=== PATIENT | male | born 1960 | race Caucasian/White ===

== ENCOUNTER → 2017-01-26 | Outpatient (CLI) | payer BC ==
[~2017-01-26] MED LIST: AMLO-114 PO; ASPI81TA28 PO; ATOR10TA88 PO; CLB200 PO; LABE1TAB28 PO; LOSA50TA6 PO; OXYC1TAB3 PO; TRIA37.5 PO
== END | disposition home or self-care (01) ==
LOC: C.LAB 12:21
PROVIDERS: ATTEND Internal Medicine
DX: R97.20 Elevated prostate specific antigen [PSA] (principal)

== ENCOUNTER → 2017-02-02 | Outpatient (CLI) | payer BC | END | disposition home or self-care (01) | LOC: C.PATHSPEC 17:31 | PROVIDERS: ATTEND Urology | DX: C61 Malignant neoplasm of prostate (principal) ==

== ENCOUNTER → 2017-02-08 | Outpatient (CLI) | payer BC ==
[~2017-02-08] MED LIST changes: +ATOR10TA82 PO; -ATOR10TA88 PO
--- NOTE | 2017-02-08 12:17 | DIAGNOSTIC IMAGING REPORT ---
BONE SCAN WHOLE BODY HISTORY: 56 years-old Male C61 Prostate [id number] prostate cancer. Metastatic survey. History of left total knee arthroplasty COMPARISON: CT chest 11/21/2009 TECHNIQUE: Anterior and posterior whole-body planar bone scan scintigraphic images were obtained utilizing 26.1 mCi of technetium 99 MDP FINDINGS: Focus of radiotracer cannulation within the region of the left antecubital fossa suggests injection site. There is physiologic distribution of radiotracer activity about the kidneys and urinary bladder as well as within the soft tissues. Photopenic defect about the left knee is compatible with arthroplasty. Moderate tracer uptake is noted about the left knee, shoulders, wrists and scattered throughout the thoracic spine suggesting degenerative changes. Focal area of intense radiotracer uptake about the lateral aspect of the right foot is noted. Moderate area of radiotracer uptake about the posterior left mid neck and also within the region of the facet joints bilaterally at L4 and on the left at L5, also favor degenerative changes. Focal area of moderate radiotracer uptake is noted about the anterior aspect of the lateral left eighth rib region. Degenerative changes of the sternoclavicular joints. IMPRESSION: 1. No definite areas of increased radiotracer uptake are seen to suggest metastasis. 2. Moderate areas of radiotracer uptake within the mid cervical spine, lower lumbar spine and throughout the thoracic spine as above favor degenerative changes. Correlate with radiographs. 3. Intense radiotracer uptake about the lateral aspect of the right foot is suspicious for possible fracture or degenerative changes. 4. Moderate radiotracer uptake adjacent to the anterior left eighth rib is indeterminate and could also be correlated with radiographs. The above report was generated using voice recognition software. It may contain grammatical, syntax or spelling errors. Electronically signed by: Kayden Franco M.D. 02/08/2017 12:16 PM Dictated Date/Time: 02/08/2017 12:09 PM
== END | disposition home or self-care (01) ==
LOC: C.NUCL 07:47
PROVIDERS: ATTEND Urology
DX: C61 Malignant neoplasm of prostate (principal)

== ENCOUNTER 2017-03-09 05:36 | Inpatient (IN) | payer BC ==
[2017-02-23 14:48] VITALS: BMI 34.0
--- NOTE | 2017-02-23 15:11 | PAT Medication Instructions ---
Service Date Feb 23, 2017. Current Home Medication List Aspirin (Aspirin Ec), 81 MG PO QAM Atorvastatin (Lipitor), 10 MG PO QAM Ibuprofen (Advil), 800 MG PO PRN Labetalol (Normodyne), 400 MG PO BID Losartan Potassium (Cozaar), 100 MG PO QAM Tadalafil (Cialis), 10 MG PO QAM Triamterene/Hctz (Dyazide 37.5MG/25MG), 1 TAB PO QAM Medication Instructions For Your Scheduled Surgery - Check with surgeon for instructions: Ibuprofen (Advil), 800 MG PO PRN Aspirin (Aspirin Ec), 81 MG PO QAM - Hold the following medications the morning of surgery: Losartan Potassium (Cozaar), 100 MG PO QAM Triamterene/Hctz (Dyazide 37.5MG/25MG), 1 TAB PO QAM - Take the following medications the morning of surgery with a sip of water: Labetalol (Normodyne), 400 MG PO BID Atorvastatin (Lipitor), 10 MG PO QAM Tadalafil (Cialis), 10 MG PO QAM - Take the following medications as scheduled the night before surgery: Labetalol (Normodyne), 400 MG PO BID If you have any questions please call us at [phone] or [phone] or [phone]
[2017-02-23 15:31] LABS: BASO % 0.9 %; BASO ABS # 0.07 K/uL (0-0.2); COMPLETE YES; EOS % 3.3 %; HEMATOCRIT 38.7 % (42-52); IG% 0.4 %; LYMPH % 20.7 %; LYMPH ABS # 1.59 K/uL (1.2-3.4); MEAN CELL VOLUME 97.7 fL (80-100); MEAN CORPUSCULAR HEMOGLOBIN 32.8 pg (25-34); MEAN CORPUSCULAR HGB CONC 33.6 g/dl (32-36); MEAN PLATELET VOLUME 9.5 fL (7.4-10.4); MONO % 11.3 %; NEUT % 63.4 %; PLATELET COUNT 176 K/uL (130-400); RED BLOOD COUNT 3.96 M/uL (4.7-6.1); WHITE BLOOD COUNT 7.69 K/uL (4.8-10.8)
[2017-02-23 15:41] LABS: URINE APPEARANCE CLEAR (CLEAR); URINE BILIRUBIN NEG (NEG); URINE COLOR YELLOW; URINE NITRITE NEG (NEG); UROBILINOGEN NEG (NEG)
[2017-02-23 15:43] LABS: MANUAL MICROSCOPIC REQUIRED? NO; REVIEW REQ? NO
[2017-02-23 16:13] LABS: BUN/CREATININE RATIO 23.7 (10-20); CALCIUM 9.6 mg/dl (8.5-10.1); CREATININE 0.96 mg/dl (0.60-1.40); POTASSIUM 4.1 mmol/L (3.5-5.1)
--- NOTE | 2017-02-23 16:18 | DIAGNOSTIC IMAGING REPORT ---
CHEST 2 VIEWS ROUTINE CLINICAL HISTORY: Preoperative evaluation. COMPARISON STUDY: Chest radiograph November 26, 2015. FINDINGS: Lung volumes are normal. No pneumothorax or pleural effusion is present. There is no consolidation to suggest pneumonia. Numerous old healed left-sided rib fractures are noted as well as posttraumatic and degenerative changes of the left shoulder. Cardiomediastinal silhouette is stable. IMPRESSION: No acute cardiopulmonary findings. No change in appearance of the chest with extensive old posttraumatic findings within the left hemithorax. Electronically signed by: Phong Zamora M.D. 02/23/2017 4:17 PM Dictated Date/Time: 02/23/2017 4:15 PM
[2017-03-09] VITALS (8 sets, daily range): BP systolic 106–152; BP diastolic 67–86; PULSE 73–93; TEMP 36.5–36.8; O2SAT 92–96; Ht 188 cm; Wt 120.9 kg
[~2017-03-09] VITALS: Ht 188 cm; Wt 120.9 kg
[~2017-03-09 05:36] MED LIST changes: -AMLO-114 PO; -CLB200 PO; +IBUP-1050 PO; -OXYC1TAB3 PO; +TADA10TA PO
[2017-03-09] MEDS ORDERED: LACTATED RINGER'S 1000ML 1,000 ML IV SCH (06:00)
[2017-03-09] MEDS ORDERED: HEPARIN SOD 5000 UNIT/0.5 ML CARP SQ SCH (06:00)
[2017-03-09] MEDS ORDERED: CEFAZOLIN 2000MG IV PUSH 10 ML IV SCH (06:00)
[2017-03-09] MEDS ORDERED: BUPIVACAINE 0.5 % 5 MG/1 ML MPF 30ML VIAL ONE (06:54)
[2017-03-09] MEDS ORDERED: FENTANYL CITRATE INJ 50 MCG/1 ML 2 ML VIAL ONE (07:08)
[2017-03-09] MEDS ORDERED: BELLADONNA/OPIUM SUPP 60 MG SUPP PR ONE (07:08)
[2017-03-09] MEDS ORDERED: MIDAZOLAM HCL 1 MG/ML 2ML VIAL ONE (07:08)
--- NOTE | 2017-03-09 07:22 | History & Physical Bridge Note ---
H&P Re-Evaluation Bridge Note: I have examined the patient, reviewed the History & Physical and in the interval since the performance of the History & Physical I have noted the following changes of clinical significance: No changes noted
[2017-03-09] MEDS ORDERED: ATROPINE SULFATE 0.1 MG/ML 5ML SYR IV PRN (08:15)
[2017-03-09] MEDS ORDERED: HYDROmorphone INJ 2 MG/ML SYR/VIAL IV PRN (08:15)
[2017-03-09] MEDS ORDERED: ONDANSETRON INJ 2 MG/ML 2 ML VIAL IV PRN ×2 (08:15→11:15)
[2017-03-09] MEDS ORDERED: KETOROLAC TROMETHAMINE 30 MG/ML VIAL IV. PRN (08:15)
[2017-03-09] MEDS ORDERED: LIDOCAINE HCL 2% 2 ML VIAL (20MG/ML) ONE (08:18)
[2017-03-09] MEDS ORDERED: LARYING-O-JET KIT (LTA) ONE ×2 (08:18)
[2017-03-09] MEDS ORDERED: ROCURONIUM BROMIDE 10 MG/ML 5 ML VIAL IV ONE ×2 (08:18)
[2017-03-09] MEDS ORDERED: PROPOFOL IV EMULSION 10 MG/ML 20 ML VIAL IV ONE (08:18)
[2017-03-09] MEDS ORDERED: PHENYLEPHRINE 100MCG/ML 5ML SYR ONE (08:23)
[2017-03-09] MEDS ORDERED: NEOSTIGMINE METHYLSULFATE 5 MG/5 ML SYR ONE (08:23)
[2017-03-09] MEDS ORDERED: EpHEDrine SULFATE 50MG/5ML SYR ONE (08:23)
[2017-03-09] MEDS ORDERED: GLYCOPYRROLATE INJ 0.2 MG/ML VIAL ONE (08:23)
[2017-03-09] MEDS ORDERED: ONDANSETRON INJ 2 MG/ML 2 ML VIAL ONE (08:23)
[2017-03-09] MEDS ORDERED: HYDROmorphone INJ 2 MG/ML SYR/VIAL ONE (08:24)
[2017-03-09] MEDS ORDERED: METHYLENE BLUE 0.5% 10 ML VIAL ONE (09:43)
[2017-03-09] MEDS ORDERED: SURGICEL ABSORB HEMOSTAT 2IN X 14IN TOP ONE (10:22)
[2017-03-09] MEDS ORDERED: FLOSEAL HEMOSTATIC MATRIX 10ML TOP ONE (10:24)
[2017-03-09] MEDS: LACTATED RINGER'S 1000ML 1,000 ML IV SCH ×2 (11:09→19:26)
[2017-03-09] MEDS ORDERED: OXYC7.5T62 PO ×2 (11:18→11:27)
[2017-03-09] MEDS ORDERED: CLC100 PO (11:18)
[2017-03-09] MEDS ORDERED: CIPR1TAB10 PO (11:18)
--- NOTE | 2017-03-09 11:40 | [facility] Operative Report ---
Operative Report Operative Date Mar 09, 2017. Pre-Operative Diagnosis Prostate cancer Post-Operative Diagnosis Same Procedure(s) Performed Robot Assisted Laparoscopic Prostatectomy with pelvic lymph node dissection Surgeon Dr Pimentel Shorts Sifter Surgeon(s) Constance AGUIRRE Estimated Blood Loss 100ML Findings As per dictation. Specimens A. Periprostatic fat B. Right pelvic lymph node (clip) C. Left pelvic lymph node D. Prostate and seminal vesicles Drains EVA; Irving Anesthesia Gen Complication(s) None Disposition Recovery Room / PACU (stable) Indications Prostate Cancer Description of Procedure The patient was identified in the preoperative holding area, appropriate informed consents were reviewed and completed, and he was transported to the operating suite. Subcutaneous heparin was administered in the pre-operative holding area. Upon arrival in the operating suite, he received appropriate antibiotics and general anesthesia. He was positioned in dorsal lithotomy, a B& O suppository was inserted after digital rectal exam, and he was prepped and draped in standard fashion. A Irving catheter was inserted in the sterile field. A Veress needle was passed per umbilicus with uniform insuflation of the abdomen to 15mmHg. He was placed in steep Trendelenburg position. A periumbilical incision was then made to accommodate a 12mm Visiport with 10mm 0degree laparoscope. Inspection of the abdomen was carried out, and there was no evidence of traumatic entry or injury secondary to the Veress needle. After confirming a clear anterior abdominal wall, ports were subsequently placed in standard robotic prostatectomy fashion without incident. To begin the robotic portion of the case, the left lateral aspect of the sigmoid was mobilized off of the left pelvic side wall to allow the pouch of Chidi to be appropriately visualized. Additional lysis of adhesions was required secondary to a prior open appendectomy. The medial umbilical ligaments were then controlled with bipolar electrocautery just inferior to the umbilicus. Following cauterization, they were divided utilizing monopolar cautery. A peritoneal incision was carried from this location to the medial aspect of the internal inguinal rings bilaterally with care to avoid opening through the ring. This incision was concluded when the vas deferens was reached. Dissection of the bladder and prostate off of the posterior aspect of the pubic arch was completed allowing full visualization of the prostate. The fat overlying the prostate was removed en bloc and passed off the table as a specimen labeled "periprostatic fat". The endopelvic fascia was cleared during this portion of the procedure, and subsequently opened - first on the right and then the left. The incision through the endopelvic fascia began near the prostate-bladder junction and was carried to the apex with extreme care to preserve all lateral levator musculature as well as the periurethral musculature and sphincter complex. The puboprostatic ligaments were thinned slightly bilaterally before placing a 0-Vicryl figure of 8 stitch around the DVC. The lymph node dissection was then conducted. External iliac vessles were identified on the pelvic side wall. The packet of fat and lymphatic tissue that resides just under the iliac vein was elevated and off of the vein with a split and roll technique. The packet was dissected laterally to the circumflex vein and distally to the obturator nerve which was preserved. The proximal aspect of the packet was carried towards the bifurcation of the iliac vessels. A combination of monopolar and bipolar cautery were used to assist with control. Clips were placed at the proximal and distal aspects of the packet prior to transection. After completing the dissection on both sides, the packets were collected and passed off of the table as specimens labeled "pelvic lymph nodes". My attention then returned to the prostate, with identification of the bladder neck aided by gentle traction on the Irving catheter and lateral to medial pressure at the presumed level of the bladder neck with the robotic instruments. An anterior cystotomy was made, the Irving balloon deflated and the catheter guided through the incision to allow anterior retraction. I attempted to preserve maximal bladder neck musculature as I circumferentially dissected around the bladder neck. After incision through the posterior aspect of the mucosa, the dissection was carried through detrusor muscle until the bilateral ampullae of the vasa were identified. In the midst of this dissection , I noted a small posterior tear of the bladder neck (2mm). After careful inspection inside and outside of the bladder, I repaired the tear primarily using 3-0 vicryl. The UO's were visualized and not incorporated into the closure. After identifying the vasa, I developed a pedicle packet on each side to help flatten the dissection and placed Weck clips across the most proximal and superficial aspects of these packets adjacent to the bladder. The packets were then divided allowing easier visualization of the vasa and posterior aspect of the prostate. Vasa were each dissected before being transected. These were used to further aide in anterior retraction as the bilateral seminal vesicals were dissected with very judicious use of bipolar electrocautery. Following SV dissection, a posterior plane behind the prostate was developed - splitting Denonvilliers's fascia. This dissection was carried as far as possible towards the apex as well as far as possible laterally. An incision in the lateral prostatic fascia was then made bilaterally to facilitate control of the vascular pedicles. The pedicles were each controlled with a series of Weck clips. The neurovascular bundles were identified bilaterally. Of note, he has bilateral cancer, with slightly more aggressive disease on the left and MRI suggestion of micro-extraprostatic extension. Subsequently, I performed a cautious nerve sparing bilaterally (with particular caution on the left). The apical attachments of the prostate were remaining at that stage. The DVC was divided with bipolar electrocautery. Nena-prostatic tissue incised with sharp dissection and monopolar cautery. Maximal urethral length was preserved before dividing the urethra sharply. The prostate was entirely freed at that point, and collected in an EndoCatch bag before being moved out of the field of vision. Hemostasis was confirmed and anastomosis of the bladder and urethra was completed utilizing a double armed V- Lock stitch. A new Irving catheter was inserted and the anastomosis tested with irrigation. There was no evidence of leak. FloSeal coagulant was placed around the anastomosis. The robot was undocked, the specimen extracted through expansion of the nena- umbilical camera port. The fascia was closed with a series of 0-PDS figure of 8 stitches. The right oral surgery assistant port was closed in two layers - with a figure of 8 0-Vicryl to reapproximate the fascia followed by 4-0 Monocryl to close the skin. Monocryl was used to close all other skin incisions. All wounds were dressed with Dermabond. The case was concluded and the patient taken to the PACU in stable condition. I attest to the content of the Intraoperative Record and any orders documented therein. Any exceptions are noted below.
[2017-03-09] MEDS ORDERED: FUROSEMIDE 10 MG/ML 10 ML VIAL ONE (11:52)
[2017-03-09 12:05] LABS: HEMATOCRIT 36.3 % (42-52); MEAN CELL VOLUME 100.6 fL (80-100); MEAN CORPUSCULAR HEMOGLOBIN 32.4 pg (25-34); MEAN PLATELET VOLUME 9.2 fL (7.4-10.4); PLATELET COUNT 153 K/uL (130-400); RED BLOOD COUNT 3.61 M/uL (4.7-6.1); WHITE BLOOD COUNT 7.65 K/uL (4.8-10.8)
--- NOTE | 2017-03-09 12:06 | Anesthesiology Progress Note ---
Anesthesia Post Op Note Date & Time Mar 09, 2017 at 12:06 Vital Signs Pain Intensity: 0 Vital Signs Past 12 Hours Date Time Temp Pulse Resp B/P (MAP) Pulse Ox O2 Delivery O2 Flow Rate FiO2 03/09/17 12:00 85 13 122/62 93 Oxymask 4 03/09/17 11:50 90 14 102/65 96 Oxymask 10 03/09/17 11:40 86 14 104/58 94 Oxymask 10 03/09/17 11:32 36.0 93 19 109/60 94 Oxymask 10 03/09/17 05:52 36.5 73 20 114/76 (89) 96 Room Air Notes Mental Status: alert / awake / arousable, participated in evaluation Pt Amnestic to Procedure: Yes Nausea / Vomiting: adequately controlled Pain: adequately controlled Airway Patency, RR, SpO2: stable & adequate BP & HR: stable & adequate Hydration State: stable & adequate Anesthetic Complications: no major complications apparent
[2017-03-09 12:09] LABS: MEAN CORPUSCULAR HGB CONC 32.2 g/dl (32-36)
[2017-03-09 12:25] LABS: BUN/CREATININE RATIO 12.7 (10-20); CALCIUM 8.4 mg/dl (8.5-10.1); CREATININE 1.51 mg/dl (0.60-1.40); POTASSIUM 4.5 mmol/L (3.5-5.1)
[2017-03-09] MEDS ORDERED: NURSING VERBAL MED ORDER ONE ×2 (12:30→18:15)
[2017-03-09] MEDS ORDERED: LIDOCAINE HCL 2% JELLY 30 ML TUBE EXT PRN (13:15)
[2017-03-09] MEDS ORDERED: PHENAZOPYRIDINE HCL 200 MG TAB PO PRN (13:15)
[2017-03-09] MEDS: ACETAMINOPHEN 500 MG TAB PO SCH ×2 (13:20→19:23)
[2017-03-09 13:45] LABS: INR 1.1 (0.9-1.1); PROTHROMBIN TIME (PATIENT) 11.6 SECONDS (9.0-12.0)
[2017-03-09] MEDS: HYDROmorphone INJ 1 MG/ML SYR IV PRN ×3 (15:51→23:39)
[2017-03-09] MEDS: CEFAZOLIN IV 3,000 MG in SYRINGE 0 ML IV SCH ×2 (16:46→23:29)
[2017-03-09] MEDS: KETOROLAC TROMETHAMINE 15 MG/ML VIAL IV PRN ×2 (17:00→23:26)
[2017-03-09] MEDS ORDERED: LORAZEPAM 1 MG TAB PO PRN (18:15)
[2017-03-09] MEDS ORDERED: DiphenhydrAMINE HCL 50 MG/ML VIAL IV PRN (19:45)
[2017-03-09] MEDS: LABETALOL HCL 200 MG TAB PO SCH (20:53)
[2017-03-09] MEDS: DOCUSATE SODIUM 100 MG CAP PO SCH (20:53)
[2017-03-09] MEDS: OXYBUTYNIN CHLORIDE 5 MG TAB PO PRN (20:53)
[2017-03-09] MEDS: HEPARIN SOD 5000 UNIT/0.5 ML CARP SQ SCH (20:54)
[2017-03-09] MEDS: OXYCODONE/ACETAMINOPHEN 7.5-325 TAB PO PRN (21:28)
[2017-03-10] MEDS: ACETAMINOPHEN 500 MG TAB PO SCH ×2 (02:00→08:00)
[2017-03-10 03:24] VITALS: BP 130/77; PULSE 87; TEMP 37; O2SAT 97
[2017-03-10] MEDS: OXYCODONE/ACETAMINOPHEN 7.5-325 TAB PO PRN ×2 (03:28→11:12)
[2017-03-10] MEDS: HYDROmorphone INJ 1 MG/ML SYR IV PRN (04:41)
[2017-03-10] MEDS: OXYBUTYNIN CHLORIDE 5 MG TAB PO PRN (05:00)
[2017-03-10 06:40] LABS: BASO % 0.6 %; BASO ABS # 0.05 K/uL (0-0.2); COMPLETE YES; EOS % 2.6 %; HEMATOCRIT 35.2 % (42-52); IG% 0.4 %; LYMPH % 11.1 %; LYMPH ABS # 0.91 K/uL (1.2-3.4); MEAN CELL VOLUME 101.1 fL (80-100); MEAN CORPUSCULAR HEMOGLOBIN 32.2 pg (25-34); MEAN CORPUSCULAR HGB CONC 31.8 g/dl (32-36); MEAN PLATELET VOLUME 9.6 fL (7.4-10.4); MONO % 11.1 %; NEUT % 74.2 %; PLATELET COUNT 157 K/uL (130-400); RED BLOOD COUNT 3.48 M/uL (4.7-6.1); WHITE BLOOD COUNT 8.19 K/uL (4.8-10.8)
[2017-03-10 07:10] LABS: CALCIUM 7.8 mg/dl (8.5-10.1); CREATININE 1.16 mg/dl (0.60-1.40)
[2017-03-10 07:13] VITALS: BP 121/73; PULSE 107; TEMP 37.2; O2SAT 93
[2017-03-10] MEDS: LABETALOL HCL 200 MG TAB PO SCH (07:41)
[2017-03-10] MEDS: KETOROLAC TROMETHAMINE 15 MG/ML VIAL IV PRN (08:12)
--- NOTE | 2017-03-10 08:13 | Clinical Documentation Query ---
PLEASE SEND TO DR. MERCADO FOR REVIEW. CLINICAL DOCUMENTATION QUERY A 56 yo male admitted for robot assisted lap prostatectomy. In your clinical opinion is this patient being managed for: ( ) Acute kidney failure, resolving ( ) Not Agree (x ) Other explanation of clinical findings (Please Explain) ( ) Unable to determine (Please Define) ( ) Need to Discuss The medical record reflects the following clinical findings, treatment, and risk factors. Clinical Indicators: Creatinine 0.96 trending up to 1.51, GFR 86.8 trending down to 50.2 Treatment: IV hydration, I&O, serial PRPs Risk Factors: S/P surgical intervention Please clarify and document your clinical opinion in the progress notes and discharge summary. Terms such as "probable", "suspected", "likely", "questionable", "possible", or "still to be ruled out" are acceptable. IF IN AGREEMENT, YOU MUST DOCUMENT ABOVE DIAGNOSTIC STATEMENT IN DAILY PROGRESS NOTES AND DISCHARGE SUMMARY. This document is not part of the patient's record. Thank You, Evy Bailey RN [phone]
--- NOTE | 2017-03-10 08:29 | Progress Note ---
Subjective Date of Service: Mar 10, 2017. Subjective Pt evaluation today including: conversation w/ patient, physical exam, lab review Voiding: brandon catheter in place Did well overnight - pain controlled - still awaiting bowel function - urine clearing appropriately - tolerating a diet Review of Systems Constitutional: No see HPI, No fever, No chills, No sweats, No weight loss, No weakness, No fatigue, No problem reported Objective Vital Signs Date Time Temp Pulse Resp B/P (MAP) Pulse Ox O2 Delivery O2 Flow Rate FiO2 03/10/17 07:13 37.2 107 20 121/73 (89) 93 Room Air 03/10/17 03:24 37.0 87 18 130/77 (94) 97 Room Air 03/09/17 23:40 Room Air 03/09/17 23:25 36.8 90 18 152/85 (107) 96 Room Air 03/09/17 20:42 36.6 93 16 138/86 (103) 95 Room Air 03/09/17 15:33 36.8 77 17 135/78 (97) 93 Room Air 03/09/17 14:31 86 16 115/74 (88) 93 03/09/17 13:30 36.5 93 16 106/67 (80) 92 Nasal Cannula 3.0 03/09/17 13:11 92 18 110/71 (84) 95 Nasal Cannula 2.0 03/09/17 12:30 95 Nasal Cannula 2.0 03/09/17 12:30 95 Nasal Cannula 2.0 03/09/17 12:30 36.8 89 16 117/75 (89) 95 Nasal Cannula 2.0 03/09/17 12:10 36.1 95 12 137/71 95 Nasal Cannula 3 03/09/17 12:00 85 13 122/62 93 Oxymask 4 03/09/17 11:50 90 14 102/65 96 Oxymask 10 03/09/17 11:40 86 14 104/58 94 Oxymask 10 03/09/17 11:32 36.0 93 19 109/60 94 Oxymask 10 Physical Exam General Appearance: no apparent distress Cardiovascular: no edema Abdomen: soft (mildly distended - incisions appropriate. EVA serosang - brandon clearing) Skin: warm/dry Laboratory Results Last 24 Hours Test 03/09/17 11:49 03/09/17 13:26 03/10/17 06:00 White Blood Count 7.65 K/uL 8.19 K/uL Red Blood Count 3.61 M/uL 3.48 M/uL Hemoglobin 11.7 g/dL 11.2 g/dL Hematocrit 36.3 % 35.2 % Mean Corpuscular Volume 100.6 fL 101.1 fL Mean Corpuscular Hemoglobin 32.4 pg 32.2 pg Mean Corpuscular Hemoglobin Concent 32.2 g/dl 31.8 g/dl RDW Standard Deviation 48.4 fL 49.0 fL RDW Coefficient of Variation 13.2 % 13.4 % Platelet Count 153 K/uL 157 K/uL Mean Platelet Volume 9.2 fL 9.6 fL Sodium Level 140 mmol/L 135 mmol/L Potassium Level 4.5 mmol/L 4.0 mmol/L Chloride Level 106 mmol/L 101 mmol/L Carbon Dioxide Level 24 mmol/L 27 mmol/L Anion Gap 10.0 mmol/L 7.0 mmol/L Blood Urea Nitrogen 19 mg/dl 22 mg/dl Creatinine 1.51 mg/dl 1.16 mg/dl Est Creatinine Clear Calc Drug Dose 73.7 ml/min 95.9 ml/min Estimated GFR () 58.2 80.0 Estimated GFR (Non- 50.2 69.0 BUN/Creatinine Ratio 12.7 19.0 Random Glucose 110 mg/dl 116 mg/dl Calcium Level 8.4 mg/dl 7.8 mg/dl Prothrombin Time 11.6 SECONDS Prothromb Time International Ratio 1.1 Neutrophils (%) (Auto) 74.2 % Lymphocytes (%) (Auto) 11.1 % Monocytes (%) (Auto) 11.1 % Eosinophils (%) (Auto) 2.6 % Basophils (%) (Auto) 0.6 % Neutrophils # (Auto) 6.08 K/uL Lymphocytes # (Auto) 0.91 K/uL Monocytes # (Auto) 0.91 K/uL Eosinophils # (Auto) 0.21 K/uL Basophils # (Auto) 0.05 K/uL Immature Granulocyte % (Auto) 0.4 % Immature Granulocyte # (Auto) 0.03 K/uL Assessment and Plan POD#1 s/p RALP with LND - urine clearing - labs appropriate - tolerating a diet - EVA out this AM - tentative plan for d/c home after lunch
[2017-03-10] MEDS: CEFAZOLIN IV 3,000 MG in SYRINGE 0 ML IV SCH (08:41)
[2017-03-10] MEDS: DOCUSATE SODIUM 100 MG CAP PO SCH (08:42)
[2017-03-10] MEDS ORDERED: TRIAMTERENE/HCTZ 37.5/25MG CAP PO SCH (09:00)
[2017-03-10] MEDS ORDERED: ATORVASTATIN 10 MG TAB PO SCH (09:00)
[2017-03-10] MEDS ORDERED: LOSARTAN POTASSIUM 50 MG TAB PO SCH (09:00)
[2017-03-10] MEDS ORDERED: ASPIRIN 81 MG ECTAB PO SCH (09:00)
[2017-03-10] MEDS: HEPARIN SOD 5000 UNIT/0.5 ML CARP SQ SCH (09:35)
--- NOTE | 2017-03-10 10:39 | Discharge Instructions ---
Discharge Instructions Date of Service Mar 09, 2017. Admission Reason for Admission: Prostate Cancer Discharge Discharge Diagnosis / Problem: Prostate Cancer Discharge Goals Goal(s): Decrease discomfort, Increase independence, Improve disease control, Therapeutic intervention Activity Recommendations Activity Limitations: per Instructions/Follow-up section Shower/Bathe: tomorrow . Instructions / Follow-Up Instructions / Follow-Up 1. Do not lift >15lbs x 6 weeks. 2. No heavy exercise x 6 weeks. You may engage in light activity such as walking and stairs as tolerated. 3. No sexual intercourse until cleared by Dr. Pimentel. You may resume taking your Cialis after your post-op appointment and clearance by Dr. Pimentel. 4. [address] drive x [address] while taking narcotics. 5. You have been prescribed the antibiotic Ciprofloxacin. Please start this medication 1 day prior to brandon catheter removal. Finish all of the antibiotic you have been prescribed. 6. Immediately call our office at [phone] if your catheter is removed for any reason. 7. Follow-up as scheduled. Please call our office at [phone] if you need to reschedule for any reason. . Current Hospital Diet Patient's current hospital diet: Clear Liquid Diet Discharge Diet Recommended Diet: Regular Diet Procedures Procedures Performed: Robot Assisted Laparoscopic Prostatectomy with pelvic lymph node dissection Pending Studies Studies pending at discharge: yes (prostate pathology and lymph node pathology) List of pending studies: prostate and lymph node pathology Medical Emergencies . Who to Call and When: Medical Emergencies: If at any time you feel your situation is an emergency, please call 911 immediately. . Non-Emergent Contact Non-Emergency issues call your: Urologist Call Non-Emergent contact if: temperature is above 101.5, your pain is not controlled, your pain is worsening, your pain is unusual for you, your pain is concerning you, wound has increased drainage, wound has increased redness, wound has increased pain, you have any medication questions . . "Provider Documentation" section prepared by Constance Barrios. . VTE Core Measure Inpt VTE Proph given/why not?: Unfractionated heparin SQ, SCD's [place] Drug Monitoring Program Search Results: patient reviewed within database, no issues identified
[2017-03-10 10:44] VITALS: BP 121/73; PULSE 100; TEMP 37.2; O2SAT 93
--- NOTE | 2017-03-10 13:11 | Anesthesiology Progress Note ---
Anesthesia Post Op Note Date & Time Mar 10, 2017 at 09:45 Vital Signs Pain Intensity: 4.0 Vital Signs Past 12 Hours Date Time Temp Pulse Resp B/P (MAP) Pulse Ox O2 Delivery O2 Flow Rate FiO2 03/10/17 10:44 37.2 100 20 93 Room Air 03/10/17 08:00 Room Air 03/10/17 07:13 37.2 107 20 121/73 (89) 93 Room Air 03/10/17 03:24 37.0 87 18 130/77 (94) 97 Room Air Notes Mental Status: alert / awake / arousable, participated in evaluation Pt Amnestic to Procedure: Yes Nausea / Vomiting: adequately controlled Pain: adequately controlled Airway Patency, RR, SpO2: stable & adequate BP & HR: stable & adequate Hydration State: stable & adequate Anesthetic Complications: no major complications apparent
== END 2017-03-10 12:05 | disposition home or self-care (01) | DRG 708 ==
LOC: C.ACU 05:36 → C.3E 11:14 → ENRESERV 12:04
PROVIDERS: ADMIT Urology; ATTEND Urology
PROC: 0TQC4ZZ Repair Bladder Neck, Percutaneous Endoscopic Approach (ICD-10-PCS; principal; 2017-03-09 07:30)
PROC: 0VT34ZZ Resection of Bilateral Seminal Vesicles, Percutaneous Endoscopic Approach (ICD-10-PCS; principal; 2017-03-09 07:30)
PROC: 0VT04ZZ Resection of Prostate, Percutaneous Endoscopic Approach (ICD-10-PCS; principal; 2017-03-09 07:30)
PROC: 07BC4ZX Excision of Pelvis Lymphatic, Percutaneous Endoscopic Approach, Diagnostic (ICD-10-PCS; principal; 2017-03-09 07:30)
DX: C61 Malignant neoplasm of prostate (principal); Z79.82 Long term (current) use of aspirin; Z79.899 Other long term (current) drug therapy

== ENCOUNTER → 2017-03-23 | Outpatient (CLI) | payer BC ==
[~2017-03-23] MED LIST changes: +CIPR1TAB10 PO; +CLC100 PO; +OXYC7.5T62 PO; -TADA10TA PO
== END | disposition home or self-care (01) ==
LOC: C.LABSPEC 17:13
PROVIDERS: ATTEND Urology
DX: R31.9 Hematuria, unspecified (principal)

== ENCOUNTER → 2017-04-29 | Outpatient (CLI) | payer BC | END | disposition home or self-care (01) | LOC: C.LAB 07:14 | PROVIDERS: ATTEND Urology | DX: C61 Malignant neoplasm of prostate (principal) ==